=== PATIENT | male | born 1995 | race Caucasian/White ===

== ENCOUNTER 2023-03-31 09:46 | Observation (INO) | payer BC ==
[2023-03-31] MEDS ORDERED: HYDROmorphone 0.5 MG/0.5 ML Syringe IVPUSH ONE (11:00)
[2023-03-31] MEDS ORDERED: Ondansetron 4 MG/2 ML SDV IVPUSH ONE (11:00)
[2023-03-31] MEDS ORDERED: Sodium Chloride 0.9% 1,000 ML IV SCH ×2 (11:00→14:36)
[2023-03-31 11:13] LABS: HEMATOCRIT 40.6 % (38.4-49.7); HEMOGLOBIN 14.1 g/dL (12.9-16.9); MEAN CORPUSCULAR HEMOGLOBIN 30.5 pg (31.6-35.5); MEAN CORPUSCULAR HGB CONC 34.7 g/dL (31.6-35.5); MEAN CORPUSCULAR VOLUME 87.7 fL (81.4-99.0); RED BLOOD CELL COUNT 4.63 M/uL (4.14-5.76); WHITE BLOOD CELL COUNT,WBC 11.6 K/uL (3.2-11.0)
[2023-03-31 11:30] LABS: INR 1.1; PROTHROMBIN TIME 11.2 sec (9.2-10.6)
[2023-03-31] MEDS ORDERED: Iopamidol 612 MG/ML 100 ML Bottle IV ONE ×3 (11:33→21:11)
[2023-03-31] MEDS ORDERED: Sodium Chloride 0.9% 50 ML IV ONE ×3 (11:33→21:11)
[2023-03-31] MEDS ORDERED: Sodium Chloride 0.9% 10 ML Syringe FLUSH ONE ×3 (11:33→21:11)
[2023-03-31 11:34] LABS: A/G RATIO 1.3 (1.2-2.2); ALANINE AMINOTRANSFERASE,ALT 23 U/L (12-78); ALBUMIN 3.9 g/dL (3.4-5.0); ALKALINE PHOSPHATASE 57 U/L (46-116); ANION GAP 10.8 mmol/L (5.0-14.0); ASPARTATE AMNIOTRANSFERASE,AST 23 U/L (15-37); BILIRUBIN TOTAL 0.6 mg/dL (0.2-1.0); BLOOD UREA NITROGEN,BUN 20 mg/dL (7-18); CALCIUM 8.6 mg/dL (8.5-10.1); CARBON DIOXIDE,CO2 26 mmol/L (21-32); CHLORIDE,CL 103 mmol/L (100-108); EST CRCL DRUG DOSING (CG) 121.79 mL/min; ESTIMATED GFR 106 mL/min (>60); GLUCOSE RANDOM 85 mg/dL (74-106); POTASSIUM,K 4.1 mmol/L (3.6-5.2); PROTEIN TOTAL,TP 6.9 g/dL (6.4-8.2); SODIUM,NA 140 mmol/L (140-148)
[2023-03-31 11:58] LABS: APPEARANCE,URINE CLEAR (CLEAR); BILIRUBIN,URINE NEGATIVE (NEGATIVE); COLOR,URINE YELLOW (YELLOW); GLUCOSE,URINE NEGATIVE (NEGATIVE); KETONES,URINE TRACE mg/dL (NEGATIVE); LEUKOCYTE ESTERASE,URINE NEGATIVE (NEGATIVE); NITRITE,URINE NEGATIVE (NEGATIVE); OCCULT BLOOD,URINE NEGATIVE (NEGATIVE); PROTEIN,URINE NEGATIVE (NEGATIVE); UROBILINOGEN,URINE 0.2 EU/dL (0.2-1.0)
[2023-03-31 12:04] LABS: AMORPHOUS SEDIMENT,URINE RARE; BACTERIA,URINE NOT SEEN; EPITHELIAL CELLS,URINE NOT SEEN; MUCUS,URINE NOT SEEN; RBC,URINE NOT SEEN (0-5); WBC,URINE NOT SEEN (0-5)
[2023-03-31] MEDS ORDERED: HYDROmorphone 0.5 MG/0.5 ML Syringe IVPUSH PRN (14:36)
[2023-03-31] MEDS ORDERED: Sodium Chloride 0.9% 10 ML Syringe FLUSH PRN (14:36)
[2023-03-31] MEDS ORDERED: Ondansetron 4 MG/2 ML SDV IV PRN (14:36)
[2023-03-31] MEDS ORDERED: Naloxone 0.4 MG/ML SDV IVPUSH PRN (14:36)
[2023-03-31] MEDS ORDERED: Acetaminophen 325 MG Tab PO PRN (14:36)
[2023-03-31 18:59] LABS: BASOPHILS ABSOLUTE AUTO 0.04 K/uL (0.00-0.10); BASOPHILS PERCENT AUTO 0.5 % (0.1-1.3); EOSINOPHILS ABSOLUTE AUTO 0.12 K/uL (0.00-0.40); EOSINOPHILS PERCENT AUTO 1.5 % (0.0-5.4); HEMATOCRIT 39.6 % (38.4-49.7); HEMOGLOBIN 13.7 g/dL (12.9-16.9); IMMATURE GRAN ABSOLUTE AUTO 0.02 K/uL (0.00-0.23); IMMATURE GRAN PERCENT AUTO 0.2 % (0.0-0.7); LYMPHOCYTES ABSOLUTE AUTO 2.65 K/uL (0.8-3.3); LYMPHOCYTES PERCENT AUTO 32.1 % (11.4-47.7); MEAN CORPUSCULAR HEMOGLOBIN 30.2 pg (31.6-35.5); MEAN CORPUSCULAR HGB CONC 34.6 g/dL (31.6-35.5); MEAN CORPUSCULAR VOLUME 87.2 fL (81.4-99.0); MONOCYTES ABSOLUTE AUTO 0.75 K/uL (0.20-0.90); MONOCYTES PERCENT AUTO 9.1 % (3.3-12.6); NEUTROPHILS ABSOLUTE AUTO 4.68 K/uL (1.0-7.6); NEUTROPHILS PERCENT AUTO 56.6 % (40.0-78.1); PLATELET COUNT,PLT 191 K/uL (130-375); RED BLOOD CELL COUNT 4.54 M/uL (4.14-5.76); WHITE BLOOD CELL COUNT,WBC 8.3 K/uL (3.2-11.0)
[2023-03-31 19:15] LABS: ANION GAP 7.9 mmol/L (5.0-14.0); CALCIUM 8.2 mg/dL (8.5-10.1); CREATININE 1.1 mg/dL (0.8-1.3); EST CRCL DRUG DOSING (CG) 110.72 mL/min; POTASSIUM,K 3.7 mmol/L (3.6-5.2)
== END 2023-03-31 23:56 | disposition home or self-care (01) ==
LOC: JP.ED 09:46 → JP.MS 12:54
PROVIDERS: ADMIT Hospitalist; ATTEND Hospitalist
DX: R10.12 Left upper quadrant pain (principal); Z20.822 Contact with and (suspected) exposure to COVID-19; W22.8XXA Striking against or struck by other objects, initial encounter
CPT/HCPCS: 36415; 74177; 80048; 80053; 81001; 83605; 83690; 85025; 85027; 85610; 87635; 96361; 96374; 96375; 99285; A9270; J1170; J2405; J3490; J7030; Q9967; 99221; 99238; 99282; G0378; U0002